=== PATIENT | male | born 1950 | race Caucasian/White ===

== ENCOUNTER 2016-07-11 17:53 | Emergency (ER) | payer OTHER ==
[2016-07-11] MEDS ORDERED: VANCOMYCIN HCL 1,000 MG/20 ML VIAL ONE (18:38)
[2016-07-11] MEDS ORDERED: NORMAL SALINE 250 ML IV ONE (18:41)
[2016-07-11] MEDS ORDERED: CYCLOBENZAPRINE HCL 10 MG TABLET PO ONE (21:13)
[2016-07-11] MEDS ORDERED: HYDROcodone/APAP PREPAC 5/325 1 TAB TABLET PO ONE (21:13)
--- NOTE | 2016-07-11 21:18 | ER PHYSICIAN DOCUMENTATION ---
Physician Documentation [facility] Name:Yared Bernard Age:65 yrs Sex:Male :1950 Arrival Date:07/11/2016 Time:17:53 Bed3 Private MD: Reece Mehta Disposition: 07/11/16 19:08 Discharged to Home/Self Care. Impression: Cellulitis of Leg, Brown Recluse Spider Bite, MRSA-Methicillin Suscept Staph Aureus - Rule out. - Condition is Good. - Discharge Instructions: BROWN RECLUSE SPIDER BITE, CELLULITIS, ABSCESS, I and D. - Medical Reconciliation form form. - Follow up: Emergency Department; When: 07/12/2016; Reason: Recheck today's complaints, Continuance of care. - Problem is new. - Symptoms are unchanged. - Notes: Elevate your right leg above your heart. Return to the Emergency Department in 12 hours for your next dose of Vancomycin. Return to the ED if high fever, chills arise. Historical: - Allergies: No known drug Allergies; - Home Meds: 1. Bactrim DS Oral 2. Keflex Oral 3. Celebrex Oral 4. Protonix Oral - Tetanus: < 10 years. - Ebola Screening: : No symptoms or risks identified at this time. . - Immunization history: Flu Vaccine unknown. - Social history: Smoking status: Patient states was never smoker of tobacco. Patient/guardian denies using alcohol. Vital Signs: 07/11 18:09 BP 135 / 62; Pulse 65; Resp 20 S; Temp 98.8; Pulse Ox 98% on R/A; Weight 83.91 kg; ma Height 5 ft. 10 in. (177.80 cm); Pain 2/10; 21:03 BP 104 / 65; Pulse 60; Resp 18; Pulse Ox 93% on R/A; ma 18:09 Body Mass Index 26.54 (83.91 kg, 177.80 cm) ma MDM: 18:38 Patient medically screened. cd 07/11 18:38 Order name: Wound Care; Complete Time: 19:03 cd 07/11 18:38 Order name: Iv Saline Lock; Complete Time: 19:03 cd Dispensed Medications: 19:03 Drug: vancomycin 1 grams; Route: IVPB; Infused Over: 2 hrs; Site: right antecubital; ma Delivery: Pump; 21:08 Follow up: IV Status: Completed infusion; IV Intake: 250ml ma : Follow up: Response: No adverse reaction ma Signatures: Huyen Cuevas RN RN ma Daley, Chris, MD MD cd
--- NOTE | 2016-07-11 21:18 | ER NURSING DOCUMENTATION ---
Nurse's Notes [facility] Name:Yared Bernard Age:65 yrs Sex:Male :1950 Arrival Date:07/11/2016 Time:17:53 Bed3 Private MD: Diagnosis:Cellulitis of Leg;Brown Recluse Spider Bite;MRSA-Methicillin Suscept Staph Aureus-Rule out Presentation: 07/11 18:02 Presenting complaint: Patient states: Possible brown recluse bite to RLE States ma occurred 10 days ago, has been on Bactrim and Keflex for 2 1/2 days Area reddened and scabbed in center. Transition of care: Home. 18:02 Acuity: LOGAN 3 ma 18:02 Method Of Arrival: Private Vehicle ma Triage Assessment: 18:08 General: Appears in no apparent distress, Behavior is cooperative. Pain: Complains of ma pain in right finch. Historical: - Allergies: No known drug Allergies; - Home Meds: 1. Bactrim DS Oral 2. Keflex Oral 3. Celebrex Oral 4. Protonix Oral - Tetanus: < 10 years. - Ebola Screening: : No symptoms or risks identified at this time. . - Immunization history: Flu Vaccine unknown. - Social history: Smoking status: Patient states was never smoker of tobacco. Patient/guardian denies using alcohol. Screenin:10 Infectious Disease Risk None. Abuse screen: Denies threats or abuse. Nutritional ma screening: No deficits noted. Assessment: 19:31 Reassessment: Patient appears in no apparent distress at this time. Denies complaints, ma IV patent. See Triage Assessment done by same RN. See Triage Assessment done by same RN. See Triage Assessment done by same RN. Vital Signs: 18:09 BP 135 / 62; Pulse 65; Resp 20 S; Temp 98.8; Pulse Ox 98% on R/A; Weight 83.91 kg; ma Height 5 ft. 10 in. (177.80 cm); Pain 2/10; 21:03 BP 104 / 65; Pulse 60; Resp 18; Pulse Ox 93% on R/A; ma 18:09 Body Mass Index 26.54 (83.91 kg, 177.80 cm) ma ED Course: 16:40 Inserted peripheral IV: 20 gauge in right antecubital area and blood collected. IV ma performed by Tian, EMS. 17:55 Patient arrived in ED. arc 18:02 Huyen Cuevas, RN is Primary Nurse. ma 18:05 Triage completed. ma 18:10 Valuables Remains with patient Patient has correct armband on for positive ma identification. Bed in low position. Call light in reach. 18:38 Reece Andujar MD is Attending Physician. cd 21:04 IV Converted IV to saline lock on right forearm. ma Administered Medications: 19:03 Drug: vancomycin 1 grams; Route: IVPB; Infused Over: 2 hrs; Site: right antecubital; ma Delivery: Pump; 21:08 Follow up: IV Status: Completed infusion; IV Intake: 250ml ma 21: Follow up: Response: No adverse reaction ma Intake: 21:08 IV: 250ml; Total: 250ml. ma Outcome: :08 Discharge ordered by . cd 21: Discharged to home ma 21: Condition: stable 21:09 Instructed on discharge instructions, follow up and referral plans. Pt to return in am for additional IVF of Vancomycin 21:17 Patient left the ED. ma Signatures: Huyen Cuevas RN RN Reece Lyman MD MD cd Chew, Amelia, Reg Reg arc
[2016-07-12] MEDS ORDERED: VANCOMYCIN HCL 1,000 MG in NORMAL SALINE 250 ML IV SCH (08:30)
[2016-07-12] MEDS ORDERED: VANCOMYCIN HCL 1,000 MG in NORMAL SALINE ADDVANTAGE 250 ML IV SCH (08:30)
== END 2016-07-11 21:18 | disposition home or self-care (01) ==
LOC: ER 17:53
DX: L03.115 Cellulitis of right lower limb (principal); B95.61 Methicillin susceptible Staphylococcus aureus infection as the cause of diseases classified elsewhere; T63.3 Toxic effect of venom of spider
CPT/HCPCS: 87070; 87077; 87186; 87205; 96365; 96366; 99283; J3370; J7050